=== PATIENT | female | born 1965 | race Caucasian/White ===

== ENCOUNTER → 2016-09-09 | Outpatient (CLI) | payer OTHER ==
--- NOTE | 2016-09-13 08:07 | MM ---
Reason for exam: screening (asymptomatic). Last mammogram was performed 1 year and 2 months ago. History: Taking estrogen beginning at age 50. Taking other hormone beginning at age 50. Physical Findings: A clinical breast exam by your physician is recommended on an annual basis and results should be correlated with mammographic findings. MG Screening Mammo w CAD Bilateral CC and MLO view(s) were taken. Prior study comparison: July 14, 2015, bilateral MG screening mammo w CAD. May 23, 2014, bilateral MG screening mammo w CAD. There are scattered fibroglandular densities. No significant changes when compared with prior studies. ASSESSMENT: Negative, BI-RAD 1 RECOMMENDATION: Routine screening mammogram of both breasts in 1 year.
== END | disposition home or self-care (01) ==
LOC: RADMAMWWP 14:11
PROVIDERS: ATTEND Obstetrics & Gynecology
DX: Z12.31 Encounter for screening mammogram for malignant neoplasm of breast (principal)

== ENCOUNTER → 2016-10-18 | Outpatient (CLI) | payer OTHER ==
--- NOTE | 2016-10-18 08:53 | US ---
EXAMINATION TYPE: US venous doppler duplex LE LT DATE OF EXAM: 10/18/2016 8:36 AM COMPARISON: NONE CLINICAL HISTORY: Left Calf Pain, M79.669. No h/o dvt SIDE PERFORMED: Left VESSELS IMAGED: External Iliac Vein (EIV) Common Femoral Vein Deep Femoral Vein Greater Saphenous Vein * Femoral Vein Popliteal Vein Small Saphenous Vein * Proximal Calf Veins (* superficial vessels) Left Leg: Appears negative for DVT tech impression given to office @ 8:35 No popliteal fossa lesion is seen. IMPRESSION: EXAMINATION IS NEGATIVE FOR DVT WITHIN THE LEFT LEG.
== END | disposition home or self-care (01) ==
LOC: RADUSWWP 08:21
PROVIDERS: ATTEND Obstetrics & Gynecology
DX: M79.662 Pain in left lower leg (principal)

== ENCOUNTER → 2017-03-30 | Outpatient (CLI) | payer OTHER ==
--- NOTE | 2017-03-30 16:57 | CT ---
EXAMINATION TYPE: CT abdomen pelvis w con DATE OF EXAM: 03/30/2017 COMPARISON: 10/17/2013 HISTORY: Mid to right sided pain CT DLP: 598.9 mGycm Automated exposure control for dose reduction was used. TECHNIQUE: Helical acquisition of images was performed from the lung bases through the pelvis. CONTRAST: Performed with Oral Contrast and with IV Contrast, patient injected with 100 mL of Omnipaque 300. FINDINGS: Lung bases are clear. There is no pleural effusion. There is no pericardial effusion. Liver spleen pancreas appear normal. Bile ducts are not dilated. There are clips from cholecystectomy . There is no adrenal mass. Kidneys show satisfactory contrast opacification. There is no hydronephrosi s. There is no retroperitoneal adenopathy. There is no ascites. Bladder distends smoothly. I see no i ntestinal wall thickening. There are no dilated loops. Appendix appears normal. I see no bony destructive process. IMPRESSION: NEGATIVE CT SCAN OF THE ABDOMEN AND PELVIS. NORMAL APPENDIX. NO CHANGE COMPARED TO OLD EXAM.
== END | disposition home or self-care (01) ==
LOC: RADCTMAIN 16:16
PROVIDERS: ATTEND Family Medicine
DX: R10.11 Right upper quadrant pain (principal); R10.30 Lower abdominal pain, unspecified; R11.0 Nausea
CPT/HCPCS: 74177; Q9967

== ENCOUNTER → 2017-04-14 | Outpatient (CLI) | payer OTHER ==
--- NOTE | 2017-04-14 15:04 | US ---
EXAMINATION TYPE: US mass soft tissue chest/back DATE OF EXAM: 04/14/2017 COMPARISON: NONE CLINICAL HISTORY: [id number] Soft tissue [id number] Soft tissue disorder. Patient states feeling two palp able lumps near right clavicle. Largest has felt for about one month. Second area comes and goes. Area of lumps scanned. Superficial cluster of cystic lesions seen = 1.6 x 1.2 x 0.7 cm. Contralater al image taken. Second area of concern appears within normal limits. IMPRESSION: Cluster of cystic lesions versus a single cystic lesion with a septation measuring 1.6 c m near the right clavicle. This could represent necrotic adenopathy, resolving hematoma/seroma, or le ss likely abscesses as no internal vascularity is present. Further evaluation with CT neck/chest with and without contrast is recommended for characterization.
== END | disposition home or self-care (01) ==
LOC: RADUSWWP 14:08
PROVIDERS: ATTEND Family Medicine
DX: M79.9 Soft tissue disorder, unspecified (principal)

== ENCOUNTER → 2017-04-27 | Outpatient (CLI) | payer OTHER ==
--- NOTE | 2017-04-27 19:40 | CT ---
EXAMINATION TYPE: CT neck chest w con DATE OF EXAM: 04/27/2017 7:23 PM COMPARISON: NONE HISTORY: Masses to right clavicular region marked by BBs. CT DLP: 1132.00 mGycm Automated exposure control for dose reduction was used. CONTRAST: CT scan of the neck is performed following with IV Contrast, patient injected with 100 mL of Omnipaqu e 300. Axial images are obtained, coronal and sagittal reformatted images are reviewed. FINDINGS: The parotid glands are symmetric. Submandibular salivary glands are symmetric. There is no sign of ph aryngeal mass. There is a 1 cm cyst in the posterior left thyroid lobe. Trachea appears normal. There is normal contrast opacification of the carotid arteries and jugular veins. There is normal contrast opacification of the vertebral arteries. The tonsils and adenoids appear normal. The lungs are clear of infiltrate. There is no evidence of a pulmonary mass. There is no pleural effu marco a. Heart size is normal. There is no mediastinal adenopathy. There is no sign of aortic aneurysm o r dissection. Ascending aorta is top normal in size and measures 3.5 cm. There are markers placed ove r the anterior lateral right clavicle. I see no bony destructive process. The shoulder joint appears intact. There is no evidence of axillary adenopathy. I see no evidence of a fracture. IMPRESSION: Small cyst in the left thyroid lobe. No discrete neck mass. No evidence of abnormality associated with the right clavicle. negative CT scan of the chest.
== END | disposition home or self-care (01) ==
LOC: RADCTMAIN 18:44
PROVIDERS: ATTEND Family Medicine
DX: E04.1 Nontoxic single thyroid nodule (principal); D16.7 Benign neoplasm of ribs, sternum and clavicle
CPT/HCPCS: 70491; 71260; Q9967

== ENCOUNTER → 2017-06-15 | Outpatient (CLI) | payer OTHER | LOC: RADMAMWWP 16:57 | PROVIDERS: ATTEND Obstetrics & Gynecology | DX: Z53.9 Procedure and treatment not carried out, unspecified reason (principal) ==

== ENCOUNTER → 2017-08-25 | Outpatient (CLI) | payer OTHER ==
--- NOTE | 2017-08-25 15:58 | US ---
EXAMINATION TYPE: US thyroid st tissue head/neck DATE OF EXAM: 08/25/2017 COMPARISON: NONE CLINICAL HISTORY: E06.9 Thyroiditis unspecified E04.1 Thyroid nodule. Thyroid nodule seen on recent C T GLAND SIZE: Right Lobe: 5.1 x 1.6 x 1.8 cm Overall Parenchyma: heterogenous Left Lobe: 5.3 x 1.6 x 1.5 cm Overall Parenchyma: heterogeneous Isthmus Thickness: 0.3 cm NODULES RIGHT: # of nodules measured on right: 1 1. 0.9 X 0.7 x 0.7 cm solid nodule at the mid pole with well-defined margins. This nodule is wide r than tall and shows intranodular vascularity. This is hyperechoic Prior size: no prior LEFT: # of nodules measured on left: 1 1. 1.0 X 1.1 x 1.1 cm mixed nodule at the mid pole with well-defined margins. This nodule is wider than tall and shows intranodular vascularity. Prior size: no prior ISTHMUS: # of nodules measured in the isthmus: 0 Bilateral neck scanned, no evidence of lymphadenopathy. Extremely heterogeneous thyroid gland. 1 nodule measured bilaterally. IMPRESSION: 1. There is a nodule within the left lobe thyroid greater than 1 cm. The right lobe thyroid nodule me asures less than 1 cm. 2. Heterogenous appearing thyroid.
== END | disposition home or self-care (01) ==
LOC: RADUSWWP 14:29
PROVIDERS: ATTEND Family Medicine
DX: E04.2 Nontoxic multinodular goiter (principal)
CPT/HCPCS: 76536

== ENCOUNTER 2017-09-01 12:05 | Day surgery (SDC) | payer OTHER ==
[2017-09-01] MEDS ORDERED: ALPRAZolam 0.5 MG TAB PO STA (13:18)
--- NOTE | 2017-09-01 15:02 | US ---
EXAMINATION TYPE: US FNA thyroid DATE OF EXAM: 09/01/2017 COMPARISON: NONE HISTORY: Thyroid nodule on the right. Maximal barrier technique was utilized. After informed consent, skin overlying the lesion was locali zed with ultrasound and the overlying skin prepped and draped. Ultrasound was utilized using sterile technique. Lidocaine was used for local anesthesia. 4 passes with a 25-gauge needle were made into t he nodule and aspirated specimen was submitted to cytology. Following the procedure hemostasis achie tian. No immediate complication. The patient discharged in stable condition. IMPRESSION: STATUS POST ULTRASOUND GUIDED FINE NEEDLE ASPIRATION OF THYROID NODULE, PATHOLOGY IS PEND ING. THIS PROCEDURE WAS PERFORMED BY THE UNDERSIGNED.
--- NOTE | 2017-09-01 15:03 | US ---
EXAMINATION TYPE: US FNA thyroid DATE OF EXAM: 09/01/2017 COMPARISON: NONE HISTORY: Thyroid nodule on the left. Maximal barrier technique was utilized. After informed consent, skin overlying the lesion was locali zed with ultrasound and the overlying skin prepped and draped. Ultrasound was utilized using sterile technique. Lidocaine was used for local anesthesia. 4 passes with a 25-gauge needle were made into t he nodule and aspirated specimen was submitted to cytology. Following the procedure hemostasis achie tian. No immediate complication. The patient discharged in stable condition. IMPRESSION: STATUS POST ULTRASOUND GUIDED FINE NEEDLE ASPIRATION OF THYROID NODULE, PATHOLOGY IS PEND ING. THIS PROCEDURE WAS PERFORMED BY THE UNDERSIGNED.
== END 2017-09-01 14:45 | disposition home or self-care (01) ==
LOC: RADPROMAIN 12:05
PROVIDERS: ATTEND Family Medicine
DX: E04.1 Nontoxic single thyroid nodule (principal)
CPT/HCPCS: 10022; 76942; 88173; 88305

== ENCOUNTER → 2018-05-09 | Outpatient (CLI) | payer BC ==
--- NOTE | 2018-05-09 13:23 | MM ---
Reason for exam: screening (asymptomatic). Last mammogram was performed 1 year and 8 months ago. History: Taking estrogen beginning at age 50. Taking other hormone beginning at age 50. Physical Findings: A clinical breast exam by your physician is recommended on an annual basis and results should be correlated with mammographic findings. MG Screening Mammo w CAD Bilateral CC and MLO view(s) were taken. Prior study comparison: September 09, 2016, bilateral MG screening mammo w CAD. July 14, 2015, bilateral MG screening mammo w CAD. There are scattered fibroglandular densities. No suspicious abnormality. No significant changes when compared with prior studies. ASSESSMENT: Negative, BI-RAD 1 RECOMMENDATION: Routine screening mammogram of both breasts in 1 year.
== END | disposition home or self-care (01) ==
LOC: RADMAMWWP 07:18
PROVIDERS: ATTEND Obstetrics & Gynecology
DX: Z12.31 Encounter for screening mammogram for malignant neoplasm of breast (principal)
CPT/HCPCS: 77067